=== PATIENT | female | born 2000 | race Two or more races ===

== ENCOUNTER → 2024-03-04 | Outpatient (CLI) | payer BC, OTHER ==
[2024-03-04 17:43] LABS: HEMATOCRIT 36.8 % (36.0-47.0); HEMOGLOBIN 12.4 g/dl (12.0-15.5); MEAN CORPUSCULAR HEMOGLOBIN 28.6 pg (27.0-33.0); MEAN CORPUSCULAR HGB CONC 33.7 g/dl (32.0-36.5); PLATELET COUNT, AUTOMATED 417 10^3/uL (150-450); RED BLOOD COUNT 4.33 10^6/uL (4.00-5.40); WHITE BLOOD COUNT 14.4 10^3/uL (4.0-10.0)
[2024-03-04 18:13] LABS: HIV 1&2 SCREEN NEGATIVE (NEGATIVE)
[2024-03-04 18:20] LABS: HEPATITIS C VIRUS ABY INDEX < 0.02 INDEX (<0.8)
[2024-03-04 20:21] LABS: GC DNA AMPLIFICATION NEGATIVE (NEGATIVE)
== END ==
LOC: M PLALAB 14:35
PROVIDERS: ATTEND Specialist
DX: Z34.01 Encounter for supervision of normal first pregnancy, first trimester (principal)

== ENCOUNTER 2024-05-05 06:17 | Outpatient (CLI) | payer BC, OTHER ==
[~2024-05-05] VITALS: Ht 160 cm; Wt 73.6 kg
[~2024-05-05 06:17] MED LIST: UNRESOLVED CLARIFICATION ENTRY XX SCH
[2024-05-05 06:31] VITALS: BP 124/72
[2024-05-05] MEDS ORDERED: ECOT81TA5 PO (06:48)
[2024-05-05] MEDS ORDERED: PRENTAB9 PO (06:48)
[2024-05-05] MEDS ORDERED: HOME MED LIST COMPLETE! XX SCH (06:50)
[2024-05-05] MEDS: FIORICET TAB PO ONE (07:06)
== END 2024-05-05 09:36 | disposition home or self-care (01) ==
LOC: M LDO 06:17
PROVIDERS: ATTEND Obstetrics & Gynecology
DX: O26.892 Other specified pregnancy related conditions, second trimester (principal); R51.9 Headache, unspecified; Z3A.21 21 weeks gestation of pregnancy; Z88.1 Allergy status to other antibiotic agents; Z91.010 Allergy to peanuts

== ENCOUNTER → 2024-05-07 | Outpatient (CLI) | payer BC, OTHER ==
[~2024-05-07] MED LIST changes: +ECOT81TA5 PO; +PRENTAB9 PO; -UNRESOLVED CLARIFICATION ENTRY XX SCH
== END ==
LOC: M WHC 07:13
PROVIDERS: ATTEND Obstetrics & Gynecology
DX: Z34.82 Encounter for supervision of other normal pregnancy, second trimester (principal); Z3A.20 20 weeks gestation of pregnancy

== ENCOUNTER → 2024-05-28 | Outpatient (CLI) | payer BC, OTHER ==
[2024-05-28 13:14] LABS: HEMATOCRIT 32.8 % (36.0-47.0); MEAN CORPUSCULAR HEMOGLOBIN 28.6 pg (27.0-33.0); MEAN CORPUSCULAR HGB CONC 33.5 g/dl (32.0-36.5); MEAN CORPUSCULAR VOLUME 85.4 fl (80.0-96.0); PLATELET COUNT, AUTOMATED 431 10^3/uL (150-450); RED BLOOD COUNT 3.84 10^6/uL (4.00-5.40); WHITE BLOOD COUNT 12.3 10^3/uL (4.0-10.0)
[2024-05-28 13:36] LABS: GLUCOSE CHALLENGE TEST 1 HOUR 100 MG/DL (LESS THAN 140)
[2024-05-28 14:11] LABS: HIV 1&2 SCREEN NEGATIVE (NEGATIVE)
[2024-05-28 14:18] LABS: HEPATITIS C VIRUS ABY INDEX 0.04 INDEX (<0.8)
[2024-05-28 14:57] LABS: GC DNA AMPLIFICATION NEGATIVE (NEGATIVE)
== END ==
LOC: M PLALAB 10:28
PROVIDERS: ATTEND Obstetrics & Gynecology
DX: Z34.82 Encounter for supervision of other normal pregnancy, second trimester (principal); Z3A.00 Weeks of gestation of pregnancy not specified

== ENCOUNTER → 2024-08-25 | Outpatient (REF) | payer BC, OTHER | LOC: M PLALAB 08:36 | PROVIDERS: ATTEND Specialist | DX: Z36.85 Encounter for antenatal screening for Streptococcus B (principal); Z3A.36 36 weeks gestation of pregnancy ==

== ENCOUNTER 2024-09-08 08:32 | Outpatient (CLI) | payer BC, OTHER ==
[~2024-09-08] VITALS: Ht 160 cm; Wt 78.8 kg
[2024-09-08 08:41] VITALS: BP 113/81
[2024-09-08] MEDS ORDERED: TUMS500C PO (08:43)
== END 2024-09-08 10:01 | disposition home or self-care (01) ==
LOC: M LDO 08:32
PROVIDERS: ATTEND Advanced Practice Midwife
DX: O36.8130 Decreased fetal movements, third trimester, not applicable or unspecified (principal); O99.353 Diseases of the nervous system complicating pregnancy, third trimester; O99.343 Other mental disorders complicating pregnancy, third trimester; G40.909 Epilepsy, unspecified, not intractable, without status epilepticus; F31.30 Bipolar disorder, current episode depressed, mild or moderate severity, unspecified; Z3A.38 38 weeks gestation of pregnancy
CPT/HCPCS: 59025; 76815; 76819; 76820; G0463

== ENCOUNTER 2024-09-16 22:35 | Inpatient (IN) | payer BC, OTHER ==
[~2024-09-16] VITALS: Ht 160 cm; Wt 79.1 kg
[~2024-09-16 22:35] MED LIST changes: +TUMS500C PO
[2024-09-16 22:53] VITALS: BP 134/81
[2024-09-16] MEDS ORDERED: HOME MED LIST COMPLETE! XX SCH (22:55)
[2024-09-17] VITALS (34 sets, daily range): BP systolic 98–155; BP diastolic 54–94
[2024-09-17] MEDS ORDERED: LIDOCAINE 1% MDV 20ML VIAL INFIL PRN (00:05)
[2024-09-17] MEDS ORDERED: PROMETHAZINE 25MG/ML 1ML VIAL IV ONE (00:10)
[2024-09-17] MEDS ORDERED: BUTORPHANOL 2 MG/ML 1ML VIAL IV ONE (00:10)
[2024-09-17 00:41] LABS: HEMATOCRIT 33.9 % (36.0-47.0); HEMOGLOBIN 10.5 g/dl (12.0-15.5); MEAN CORPUSCULAR HEMOGLOBIN 23.9 pg (27.0-33.0); PLATELET COUNT, AUTOMATED 415 10^3/uL (150-450); WHITE BLOOD COUNT 12.4 10^3/uL (4.0-10.0)
[2024-09-17] MEDS: ONDANSETRON 4MG 2ML VIAL IV SCH (01:03)
[2024-09-17] MEDS: miSOPROStol 50MCG 1/2 TABLET SL SCH (01:03)
[2024-09-17 01:45] LABS: HEPATITIS C VIRUS ABY INDEX 0.21 INDEX (<0.8)
[2024-09-17] MEDS ORDERED: ONDANSETRON 4MG 2ML VIAL IV PRN ×2 (06:35→19:40)
[2024-09-17] MEDS: BUTORPHANOL 2 MG/ML 1ML VIAL IV ONE (16:37)
[2024-09-17] MEDS: PROMETHAZINE 25MG/ML 1ML VIAL IV ONE (16:37)
[2024-09-17] MEDS ORDERED: ePHEDrine SULFATE 25 MG/5 ML(5MG/ML) SYRINGE IVP PRN (19:40)
[2024-09-17] MEDS ORDERED: diphenhydrAMINE 50MG/ML VIAL IV PRN (19:40)
[2024-09-17] MEDS ORDERED: EPIDURAL/PCA KEYS XX PRN (19:40)
[2024-09-17] MEDS ORDERED: LR 500 ML IV PRN (19:40)
[2024-09-17] MEDS ORDERED: NALOXONE INJ 0.4MG/1ML VIAL IV PRN (19:40)
[2024-09-17] MEDS: FENTANYL/ROPIVACAINE/NACL BAG 100 ML EPIDURAL SCH (20:15)
[2024-09-17] MEDS: OXYTOCIN DRIP 30 UNITS in IV 1 EA IV PRN (23:52)
[2024-09-18] VITALS (14 sets, daily range): BP systolic 110–131; BP diastolic 56–76; O2SAT 96–99
[2024-09-18] MEDS: LR 1,000 ML IV SCH (00:58)
[2024-09-18] MEDS ORDERED: ANUSOL HC CREAM 30GM TOP PRN (01:10)
[2024-09-18] MEDS ORDERED: METHYLERGONOVINE MALEATE 0.2MG/ML 1ML VIAL IM PRN (01:10)
[2024-09-18] MEDS ORDERED: DOCUSATE SODIUM 100MG CAPSULE PO PRN (01:10)
[2024-09-18] MEDS ORDERED: IBUPROFEN 600MG TAB PO PRN (01:10)
[2024-09-18] MEDS: DIBUCAINE 1% OINTMENT 30GM TOP PRN (04:38)
[2024-09-18] MEDS: IBUPROFEN 800 MG TAB PO PRN (07:03)
[2024-09-18] MEDS: PRENATAL VITAMINS CHEWABLE TABLET PO SCH (08:26)
[2024-09-18] MEDS: ACETAMINOPHEN 325 MG TAB PO PRN (09:56)
[2024-09-19] MEDS: ACETAMINOPHEN 500 MG TAB PO PRN (00:35)
[2024-09-19] MEDS: MOM 30ML SUSPENSION UDC PO PRN (00:39)
[2024-09-19 05:57] VITALS: BP 119/77; O2SAT 99
[2024-09-19] MEDS: RHOGAM 300MCG (1500IU) INJ IM SCH (07:11)
[2024-09-19] MEDS ORDERED: IBUP-1022 PO (08:41)
[2024-09-19] MEDS ORDERED: ACET-683 PO (08:41)
[2024-09-20] MEDS ORDERED: MEASLES,MUMPS,RUBELLA VACCINE INJ (MMR-II) SC.IMMUN ONE (09:00)
== END 2024-09-19 12:06 | disposition home or self-care (01) | DRG 560 ==
LOC: M LDO 22:35 → M LDI 23:52 → M OBS 09-18 03:03
PROVIDERS: ADMIT Specialist; ATTEND Advanced Practice Midwife
PROC: 10E0XZZ Delivery of Products of Conception, External Approach (ICD-10-PCS; principal; 2024-09-18)
PROC: 0HQ9XZZ Repair Perineum Skin, External Approach (ICD-10-PCS; 2024-09-18)
DX: O70.0 First degree perineal laceration during delivery (principal); O69.2XX0 Labor and delivery complicated by other cord entanglement, with compression, not applicable or unspecified; Z37.0 Single live birth; Z3A.39 39 weeks gestation of pregnancy

== ENCOUNTER → 2025-03-04 | Outpatient (CLI) | payer BC, OTHER ==
[~2025-03-04] MED LIST changes: +ACET-683 PO; +IBUP-1022 PO
[2025-03-04 10:20] LABS: BASO % 0.5 % (0.0-1.0); EOS # 0.2 10^3/uL (0.0-0.5); EOS % 2.5 % (0.0-3.0); HEMOGLOBIN 10.7 g/dl (12.0-15.5); LYMPH # 2.5 10^3/uL (1.5-5.0); LYMPH % 32.9 % (24.0-44.0); MEAN CORPUSCULAR HEMOGLOBIN 23.7 pg (27.0-33.0); MEAN CORPUSCULAR HGB CONC 30.6 g/dl (32.0-36.5); MEAN CORPUSCULAR VOLUME 77.6 fl (80.0-96.0); MONO # 0.4 10^3/uL (0.0-0.8); MONO % 5.7 % (2.0-8.0); NEUTROPHILS # 4.4 10^3/uL (1.5-8.5); NEUTROPHILS % 58.1 % (36.0-66.0); PLATELET COUNT, AUTOMATED 392 10^3/uL (150-450); RED BLOOD COUNT 4.51 10^6/uL (4.00-5.40); WHITE BLOOD COUNT 7.6 10^3/uL (4.0-10.0)
[2025-03-04 10:54] LABS: FERRITIN 4.1 NG/ML (7.3-270.7)
== END ==
LOC: M PLALAB 09:09
PROVIDERS: ATTEND Advanced Practice Midwife
DX: N92.0 Excessive and frequent menstruation with regular cycle (principal); R53.83 Other fatigue

== ENCOUNTER 2025-05-01 10:28 | Outpatient (CLI) | payer BC, OTHER ==
[~2025-05-01] VITALS: Ht 160 cm; Wt 75.0 kg
[~2025-05-01 10:28] MED LIST changes: +ALBUTEROL SULFATE 2.5 MG/0.5 ML INH CONCENTRATE NEB SOLN INH PRN; +EPINEPHrine INJ 1 MG/ML 1ML AMP IM PRN; +diphenhydrAMINE 50 MG/ML VIAL IV PRN
[2025-05-01 10:35] VITALS: BP 122/70; O2SAT 97
[2025-05-01] MEDS: IRON SUCROSE 200MG IVP IV ONE (10:47)
[2025-05-01 11:20] VITALS: BP 116/74; O2SAT 99
== END 2025-05-01 11:20 ==
LOC: M INFU 10:28
PROVIDERS: ATTEND Advanced Practice Midwife
DX: D64.9 Anemia, unspecified (principal); Z88.8 Allergy status to other drugs, medicaments and biological substances; Z91.010 Allergy to peanuts
CPT/HCPCS: 96374; J1756

== ENCOUNTER 2025-05-08 10:05 | Outpatient (CLI) | payer BC, OTHER ==
[~2025-05-08] VITALS: Ht 160 cm; Wt 75.0 kg
[2025-05-08 10:17] VITALS: BP 124/82; O2SAT 100
[2025-05-08] MEDS: IRON SUCROSE 200MG IVP IV ONE (10:19)
== END 2025-05-08 11:00 ==
LOC: M INFU 10:05
PROVIDERS: ATTEND Advanced Practice Midwife
DX: D64.9 Anemia, unspecified (principal); Z88.1 Allergy status to other antibiotic agents; Z91.048 Other nonmedicinal substance allergy status
CPT/HCPCS: 96374; J1756